=== PATIENT | female | born 1990 | race Caucasian/White ===

== ENCOUNTER 2024-07-05 10:41 | Outpatient (CLI) | payer BC, SELFPAY ==
--- NOTE | ~2024-07-05 | CT_ITS ---
EXAMINATION: CT abdomen pelvis w con DATE: 07/05/2024 11:23 INDICATION: Irritable bowel syndrome. TECHNIQUE: Computed tomography (CT) of the abdomen and pelvis was performed with 100 mL Omnipaque 350 intravenous contrast. Automated exposure control and iterative reconstruction technique were employe d. The dose-length product was 584.82 mGy-cm. COMPARISON: None. FINDINGS: The visualized portions of lung bases are clear without pneumonia or pleural effusion. The heart size is normal. No pericardial effusion. The liver, gallbladder, spleen, pancreas, adrenal glan ds, and left kidney are normal. There is a 7 mm cyst in right kidney. There are no dilated loops of b owel. The appendix is normal. There are no pathologically enlarged lymph nodes. There is no free intr aperitoneal fluid. There is mild lumbar spondylosis. IMPRESSION: 1. No etiology for the patient's symptoms. Reviewed, dictated and finalized at location A. Y ATTENDANT
== END 2024-07-05 10:42 | disposition home or self-care (01) ==
LOC: MICIMG 10:41
PROVIDERS: PCP Emergency Medicine; Visit Provider Emergency Medicine
DX: K58.2 Mixed irritable bowel syndrome (principal)
CPT/HCPCS: 74177; Q9967

== ENCOUNTER 2024-09-02 11:45 | Emergency (ER) | payer BC, SELFPAY ==
--- NOTE | ~2024-09-02 | XR_ITS ---
EXAMINATION: XR knee RT 3V DATE: 09/02/2024 12:07 INDICATION: Right knee pain. Injury. TECHNIQUE: 3 views of right knee including standing views were obtained. COMPARISON: None. FINDINGS: Alignment is normal. No fracture. Joint spaces are normal. No knee joint effusion. IMPRESSION: 1. Normal right knee. Reviewed, dictated and finalized at location A. IMPRESSION: 1. Normal right knee.
--- NOTE | 2024-09-02 11:48 | ED_ITS ---
HPI - Extremity Injury (Lower) General Chief Complaint: Extremity Injury, Lower Stated Complaint: Knee Pain/Ear Pain Source: patient and RN notes reviewed Mode of arrival: ambulatory Limitations: no limitations History of Present Illness HPI Narrative: Patient is a 34-year-old female who presents to the [facility] with multiple complaints. Patient reports right anterior knee pain that has been ongoing since August 10. Patient states that she played soccer and slid tackled another player. Immediately following, she developed right knee pain. She states that the pain is been ongoing. It worsens with ambulation. She states that it is also tender to touch. There is no obvious swelling, deformity, discoloration. She is neurovascularly intact distally. Denies numbness. Sensation is intact. Patient also reports right ear discomfort. States that this has been ongoing for the last few days. She feels as if the ear is clogged. Denies drainage from the ear. Related Data Home Medications ?Medication ?Instructions ?Recorded ?Confirmed ?Last Taken ?Type cholecalciferol (vitamin D3) 25 25 mcg PO DAILY 06/17/24 06/17/24 Unknown Hi story mcg (1,000 unit) capsule Allergies Allergy/AdvReac Type Severity Reaction Status Date / Time No Known Allergies Allergy Verified 09/02/24 11:54 Review of Systems Review of Systems: CONSTITUTIONAL: Denies fever, chills, or sweats. EYES: Denies visual changes, redness, or discharge. ENT: Reports otalgia but denies sore throat CARDIOVASCULAR: Denies chest pain, palpitations, or edema. RESPIRATORY: Denies cough or dyspnea. GASTROINTESTINAL: Denies abdominal pain, nausea, vomiting, or diarrhea. GENITOURINARY: Denies dysuria or hematuria. SKIN: Denies rash or itching. MUSCULOSKELETAL: Reports right knee pain. NEUROLOGIC: Denies headache, numbness, or weakness. Pertinent positives per HPI. [facility] Past Medical History Medical History GERD (gastroesophageal reflux disease) IBS (irritable bowel syndrome) Ganglion cyst left wrist removed Surgical History Surgical History S/P endoscopy H/O colonoscopy multiple Family History Family History Father Testicle cancer Hypertension Grandparent Acute myocardial infarction paternal grandfather Lung cancer maternal grandfather Cerebrovascular accident maternal grandfather Mother Ovarian cyst Hypertension Social History Social History Smoking status: Never smoker Second hand tobacco smoke exposure: No Alcohol intake: current Drinks per week: 2 Substance use: never Substance use type: does not use Do You Feel Safe in your Home?: Yes Lack of Transportation: No Lack of Food: Never True Current Housing: I Have Housing Concerned About Future Housing: No Difficulty Paying Gas/Electric Bills: No Difficulty Paying for Meds: No Currently Unemployed: No Education: Bachelor's Degree Difficulty w/ Childcare or Family Care: No Living arrangements: with family Additional living arrangements comments: Occupation/Education: occupation 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 There is no relevant family history pertinent to the patient complaint. Exam Narrative: GENERAL: This is a well-nourished, well-developed patient, in no apparent distress. HEAD: normocephalic, atraumatic. EYES: Sclera clear/white. Vision is grossly intact. EARS: External ears normal, auditory canals clear and without drainage, Left TM normal without perforation. R TM erythematous with effusion. Hearing grossly intact. NOSE: External nose normal with no obvious nasal discharge, nares without redness, no rhinorrhea. THROAT: Mucous membranes moist, posterior pharynx clear. NECK: Neck supple, non-tender without lymphadenopathy, masses or thyromegaly. CARDIOVASCULAR: Regular rate and rhythm without murmurs, gallops, or rubs. RESPIRATORY: Clear to auscultation. Breath sounds equal bilaterally. No wheezes, rales, or rhonchi. GASTROINTESTINAL: Abdomen soft, non-tender, nondistended. Bowel sounds are active. No hepato-splenomegaly, or palpable masses. No guarding. SKIN: warm, intact with no suspicious lesions or rash, good texture and turgor. NEURO: awake, alert, and oriented to person, place and time. There were no obvious focal neurologic abnormalities. EXTREMITIES: Patient is able to bear weight and ambulate. No surface of trauma or obvious effusion. No overlying erythema or warmth. The R knee is without obvious asymmetry or deformity when comparing to the L. Fully extended knee, internal and external rotation intact. Nontender to palpate of the patella, no effusion. Distal motor and neurovascular status intact. Course Course Level of Care: Express Care Visit Vital Signs Vital signs: Vital Signs Temperature 98.2 F 09/02/24 11:53 Pulse Rate 86 09/02/24 11:53 Respiratory Rate 18 09/02/24 11:53 Blood Pressure 125/80 09/02/24 11:53 Pulse Oximetry 100 09/02/24 11:53 Temperature 98.2 F 09/02/24 11:53 Pulse Rate 86 09/02/24 11:53 Respiratory Rate 18 09/02/24 11:53 Blood Pressure 125/80 09/02/24 11:53 Pulse Oximetry 100 09/02/24 11:53 Reviewed MDM - Extremity Injury (Lower) MDM Narrative Medical decision making narrative: Take antibiotics as directed. May given ibuprofen and/or Tylenol as needed for pain and/or fever. Follow up with primary care provider in 7-10 days to have ear rechecked. Use the RICE method at home. May take ibuprofen and/or Tylenol if needed. If symptoms persist in 1 week after conservative treatment, follow-up with specialist. Differential Diagnosis Differential diagnosis: Likely acute internal derangement of knee and other (knee contusion, patellar fracture, otitis media, otitis externa) Imaging Data Attestation: I personally reviewed and interpreted this imaging study as follows: Radiologist's impression: Close Knee X-Ray (Signed) Alex Ny - 09/02/24 Launch?[facility] [place] [id number] [facility] [place] [address] XRay Report Signed Patient: Christy Mcmahan : 1990 MR#: [id number] Age: 34 Acct:[id number] Loc: [facility] ADM Date: 09/02/24Attending Dr: Ordering Physician: Alyssa Ledesma APRN Date of Service: 09/02/24 Procedure(s): XR knee RT 3V Accession Number(s): [id number] cc: Alyssa Ledesma APRN; Boaz Kumar MD~ EXAMINATION: XR knee RT 3V DATE: 09/02/2024 12:07 INDICATION: Right knee pain. Injury. TECHNIQUE: 3 views of right knee including standing views were obtained. COMPARISON: None. FINDINGS: Alignment is normal. No fracture. Joint spaces are normal. No knee joint effusion. IMPRESSION: 1. Normal right knee. Reviewed, dictated and finalized at location A. Please be advised this is a medical document. It is intended for [id number] communication. It is written in medical language and may contain unfamiliar abbreviations or verbiage. Medical documents are intended to carry relevant information, facts as evident, and the clinical opinion of the practitioner at the time of the encounter. This report may have been done utilizing a voice recognition system. Attempts have been made to correct errors. However, there may be uncorrected grammatical, spelling, and recognition errors present. The file time of this note does not necessarily represent the time of service. Dictated By: Alex Ny MD 09/02/24 1208 Signed By: <Electronically signed by Alex Ny MD in OV> 09/02/24 1208 Critical Care Time Critical Care Time Critical Care Time: No Discharge Plan Discharge Clinical Impression: Right knee sprain, Acute otitis media with effusion of right ear Patient Disposition: Home, Self-Care Condition: Stable Instructions: Antibiotic Form, Knee Sprain (ED), Ear Infection (ED), P.R.I.C.E. Treatment (ED) Additional Instructions: Use the RICE method at home. May take ibuprofen and/or Tylenol if needed. If symptoms persist in 1 week after conservative treatment, follow-up with specialist. Take antibiotics as directed. May given ibuprofen and/or Tylenol as needed for pain and/or fever. Follow up with primary care provider in 7-10 days to have ear rechecked. Patient Language: Wolof Prescriptions: New amoxicillin-pot clavulanate 875-125 mg tablet 1 tablet PO Q12H 10 Days Qty: 20 0RF naproxen 500 mg tablet 500 mg PO BID PRN (Reason: pain) Qty: 20 0RF No Action cholecalciferol (vitamin D3) 25 mcg (1,000 unit) capsule 25 mcg PO DAILY Follow-up/Referrals: Nicanor Martinez MD [Physician] - Boaz Kumar MD [Primary Care Provider] - Time of Disposition: 12:18
[2024-09-02 11:53] VITALS: BP 125/80; PULSE 86; RESP 18; TEMP 36.8; O2SAT 100
== END 2024-09-02 12:33 | disposition home or self-care (01) ==
PROVIDERS: Emergency Provider Nurse Practitioner; PCP Emergency Medicine
DX: S83.91XA Sprain of unspecified site of right knee, initial encounter (principal); X58.XXXA Exposure to other specified factors, initial encounter; Y93.66 Activity, soccer; H65.191 Other acute nonsuppurative otitis media, right ear; K21.9 Gastro-esophageal reflux disease without esophagitis
CPT/HCPCS: 73562; 99213; G0463

== ENCOUNTER 2024-10-01 10:32 | Emergency (ER) | payer BC, SELFPAY ==
[2024-10-01 10:38] VITALS: BP 130/85; PULSE 79; RESP 20; TEMP 36.8; O2SAT 100
--- NOTE | 2024-10-01 11:12 | ED.LOWEXIN ---
HPI - Extremity Injury (Lower) General Chief Complaint: Extremity Injury, Lower Stated Complaint: Right Foot Injury Time Seen by Provider: 10/01/24 11:13 Source: patient Mode of arrival: ambulatory Limitations: no limitations History of Present Illness HPI Narrative: 34 y/o female presented for c/o bruising and pain to the right foot and ankle. Onset 2 days. Symptoms started the day after running a half marathon. Denies deformity, swelling, numbness tingling or weakness. Pain only when bearing weight. Related Data Home Medications ?Medication ?Instructions ?Recorded ?Confirmed ?Last Taken ?Type No Home Medications 10/01/24 Unknown History Allergies Allergy/AdvReac Type Severity Reaction Status Date / Time No Known Allergies Allergy Verified 10/01/24 10:42 Review of Systems Review of Systems: CONSTITUTIONAL: Denies body aches, fever, chills EYES: Denies visual changes ENT: Denies rhinorrhea, congestion CARDIOVASCULAR: Denies chest pain, palpitations, or edema. RESPIRATORY: Denies cough or dyspnea. SKIN: Denies rash, itching, or wounds. MUSCULOSKELETAL: reports right foot pain denies back pain, joint pain, or myalgia. NEUROLOGIC: Denies numbness, tingling, or weakness. All systems reviewed & are unremarkable except as noted in HPI and below PMFSH Past Medical History Medical History GERD (gastroesophageal reflux disease) IBS (irritable bowel syndrome) Ganglion cyst left wrist removed Surgical History Surgical History S/P endoscopy H/O colonoscopy multiple Family History Family History Father Testicle cancer Hypertension Grandparent Acute myocardial infarction paternal grandfather Lung cancer maternal grandfather Cerebrovascular accident maternal grandfather Mother Ovarian cyst Hypertension Social History Social History Smoking status: Never smoker Second hand tobacco smoke exposure: No Alcohol intake: current Drinks per week: 2 Substance use: never Substance use type: does not use Do You Feel Safe in your Home?: Yes Lack of Transportation: No Lack of Food: Never True Current Housing: I Have Housing Concerned About Future Housing: No Difficulty Paying Gas/Electric Bills: No Difficulty Paying for Meds: No Currently Unemployed: No Education: Bachelor's Degree Difficulty w/ Childcare or Family Care: No Living arrangements: with family Additional living arrangements comments: Occupation/Education: occupation 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 Please see nursing chart for further information. There is no relevant family history pertinent to the presenting complaint Exam Narrative: GENERAL: Well-appearing CHEST: Speaks in full sentences. No respiratory distress. HEART: Regular rate and rhythm. Normal and equal peripheral pulses. EXTREMITIES: Right foot and ankle has normal strength and sensation, normal range of motion with flexion/extension/rotation. No point tenderness. Mild bruising to the base of the 4th and 5th metatarsals. No swelling, nontender with palpation. No open wounds, skin tenting, or obvious deformity; alignment normal, pulse palpable and equal bilaterally, skin warm, dry, pink. Capillary refill less than 3 seconds. SKIN: Warm, dry, no rash. NEURO: Alert and oriented x3. PSYCH: Normal mood and affect Course Course Emergency Course: Patient is aware of diagnosis, understands and agrees to treatment plan. Anticipatory guidance given. Patient agrees to follow-up as directed and is aware of reasons to seek care at the emergency department. Portions of this record may have been created with voice recognition software Level of Care: Express Care Visit Vital Signs Vital signs: Vital Signs Temperature 98.3 F 10/01/24 10:38 Pulse Rate 79 10/01/24 10:38 Respiratory Rate 20 10/01/24 10:38 Blood Pressure 130/85 10/01/24 10:38 Pulse Oximetry 100 10/01/24 10:38 Oxygen Delivery Room Air 10/01/24 10:38 Temperature 98.3 F 10/01/24 10:38 Pulse Rate 79 10/01/24 10:38 Respiratory Rate 20 10/01/24 10:38 Blood Pressure 130/85 10/01/24 10:38 Pulse Oximetry 100 10/01/24 10:38 Oxygen Delivery Room Air 10/01/24 10:38 Reviewed MDM - Extremity Injury (Lower) MDM Narrative Medical decision making narrative: Discussed physical exam findings and x-ray. Patient declined Nitesh wrap.. Advised supportive measures and signs/symptoms to go to the ER. Pt is appropriate for outpt treatment and f/u. Differential Diagnosis Differential diagnosis: Likely ankle sprain and strain and other (Plantar fasciitis, heel spur, foot strain/sprain, metatarsal fracture, metatarsalgia, walker's neuroma) Imaging Data Radiologist's impression: Patient: Christy Mcmahan : 1990 MR#: [id number] Age: 34 Acct:[id number] Loc: [facility] ADM Date: 10/01/24Attending Dr: Ordering Physician: Yessica Pablo APRN Date of Service: 10/01/24 Procedure(s): XR foot RT min 3V Accession Number(s): [id number] cc: Boaz Kumar MD; Yessica Pablo APRN~ Right foot Technique: AP, oblique, and lateral views were obtained. Clinical History: Pain Findings: No acute fracture or dislocation is seen. Osseous alignment is anatomic. Joint spaces are preserved without erosive or degenerative change. Soft tissues are unremarkable. Impression: Unremarkable right foot radiographs. Discharge Plan Discharge Clinical Impression: Right foot strain Patient Disposition: Home Condition: Stable Instructions: Antibiotic Form, Foot Sprain (ED) Additional Instructions: Rest and elevate the right leg; bear weight as tolerated Apply ice 15-20 minute intervals several times a day Keep it wrapped with NITESH or use a soft ankle splint Motrin 600mg every 8 hours, alternate with Tylenol 1000mg every 8 hours as needed Follow up with your primary care provider as needed Go to the ER for worsening symptoms or concerns Patient Language: Salvadorean Prescriptions: No Action No Home Medications Follow-up/Referrals: Boaz Kumar MD [Primary Care Provider] - Time of Disposition: 11:29
--- OUTSIDE RECORDS SUMMARY | 2024-10-01 11:44 | XMS_ITS | Clinical Summary ---
Author Organization [facility] Address Formerly [facility], [id number] [place] [address] Care Team Providers Care Machine Stamper Name Role Phone Angelita Tierney MD Primary Care Provider [phone] Social History Tobacco Use Types Packs/Day Years Used Date Smoking Tobacco: Never Assessed Comments Unknown Sex and Gender Information Value Date Recorded Sex Assigned at Not on file Legal Sex Female 5:10 PM CDT Gender Identity Not on file Sexual Orientation Not on file Plan of Treatment Health Maintenance Due Date Last Done Comments Cervical Cancer Screening Pa p Smear (Age 30 to 64) Every 3 Years 1989 Annual Physical 01/27/1992 Hepatitis C 2007 Hepatitis B Vaccines (1 of 3 - 19+ 3-dose series) 01/27/2008 Cervical Cancer Screening Pa p with HPV Testing (Age 30 to 64) Every 5 Years 2019 Cervical Cancer Screening with HPV 2019 DTaP, Tdap and Td Vaccines ( 2 - Td or Tdap) 01/11/2023 01/11/2013 COVID-19 Vaccine (2023-2 5 season) 2024 HPV Vaccines Aged Out No longer eligi ble based on patient's age to complete this topic Meningococcal B Vaccine Aged Out No l onger eligible based on patient's age to complete this topic Meningococcal Vaccine Aged Out No larry jose eligible based on patient's age to complete this topic Pneumococcal Vaccine: Pediat rics (0 to 5 Years) and At-Risk Patients (6 to 49 Years) Aged Out No longer eligi ble based on patient's age to complete this topic RSV Immunizations Under 20 Months Aged Out No longer eligible based on patient's age to complete this topic Insurance [address] [place] [address] [place] [id number] [facility] Care Teams Machine Stamper Relationship Specialty Start Date End Date Angelita Tierney MD PCP - General FAMILY PRACTICE 02/27/19
--- OUTSIDE RECORDS SUMMARY | 2024-10-01 11:45 | XMS_ITS | Patient Health Record ---
Author Organization [facility] Billing Info Address [address] [place] [id number] Care Team Providers Care Wire Machine Operator Name Role Phone MELISSA TYLER Unavailable Reason For Referral No Information Medications Medication SIG (Take, Route, Frequency, Duration) Notes Start Date End Date Status Vitafol Ultra 29-0.6-0.4-200 MG 1 capsule Orally Once a day Active Immunizations Vaccine Route Administration Date Status Comme nts TDAP (ADACEL) IM Intramuscular 08/18/2017 Administered Social History Tobacco Use: Social History Observation Description Date Details (start date - stop date) Never Smoker NA - NA Tobacco Status: Question Answer Notes Patient is a never smoker Problems No Known Problems Plan Of Treatment No Information Insurance Providers Payer Name Payer Address Payer Phone Subscriber Number Group Number Insured Name Patient Relationship to Insured Coverage Start Date Coverage End Date [facility] [address] [place], [place] [id number] Bogdan Mcmahan Spouse - patient is the spouse of the insured 8 Medical (General) History Surgical History Surgery Date(Month/Year) Hospitalization History Reason Date(Month/Year) childbirth 09/2014 childbirth 09/26/2017
--- OUTSIDE RECORDS SUMMARY | 2024-10-01 11:45 | XMS_ITS | Clinical Summary ---
Author Organization [facility] Care Team Providers Care Administrative Technician Name Role Phone Boaz Kumar MD Primary Care Provider + [phone] Allergies No known active allergies Medications triamcinolone (KENALOG) 0.1 % cream Apply topically 2 (two) times a day Active betamethasone valerate (VALISONE) 0.1 % lotion Apply topically 2 (two) times a day Active Bacillus coagulans (PROBIOTIC, B. COAGULANS, ORAL) Take by mouth Active pantoprazole DR (PROTONIX) 40 mg EC tablet Take 1 tablet (40 mg total) by mouth daily before breakfast 30 tablet 6 4 Active Active Problems Problem Noted Date Diagnosed Date Gastric ulcer without hemorrhage or perforation 10/18/2023 Chronic diarrhea 10/10/2023 Diarrhea 07/21/2023 Assessment & Plan (07/21/2023 10:01 AM METAL RIVET MACHINE OPERATOR): Chronic diarrhea. Last colonoscopy by Dr. Feng March 2022 with normal colonoscopy to the terminal ileum, biopsies of the ascending colon with melanosis coli. Last EGD by Dr. Feng March 2022 with biopsies of the duodenum with increased intraepithelial lymphocytes. -we will order stool studies and labs for further evaluation Abdominal pain 07/21/2023 Assessment & Plan (07/21/2023 10:02 AM METAL RIVET MACHINE OPERATOR): Left lower quadrant abdominal pain radiating to the left upper quadrant and back, worse with movement and meals. Tender to palpation in the left lower quadrant, we will need to rule out diverticulitis. -we will order CT scan of the abdomen and pelvis with and without contrast Dizziness and giddiness 05/31/2023 Tinnitus of left ear 05/31/2023 Pelvic and perineal pain 05/17/2023 Vitamin D deficiency 03/15/2023 Eosinophilic esophagitis 03/14/2023 Overview (03/24/2023): Dr. Mcgrath. Previously on budesonide nebulizer for suppression. Assessment & Plan (07/21/2023 10:00 AM METAL RIVET MACHINE OPERATOR): Last EGD by Dr. Feng March 2022 with erosions of the distal esophagus, gastritis. Pathology from EGD biopsies with mildly increased intraepithelial lymphocytes in the duodenum, benign fundic gland polyp, increased intraepithelial eosinophils on esophageal biopsies. -unclear if this is true EOE versus GERD -continue PPI daily -schedule EGD with biopsies -The risks (risks of bleeding, infection, perforation requiring surgery, missed polyps/cancer, dental injury, aspiration pneumonia, anesthesia complications such as drug reaction and cardiopulmonary complications including rare chance of ), benefits, and alternatives of the planned procedure were explained to the patient who understands and consents to having procedure done. Assessment & Plan (03/14/2023 4:34 PM CDT): Chronic. Stable. Continue pantoprazole 40 mg daily. We will review records from GI and discuss tapering this therapy or alternate therapies. Other chronic pancreatitis 03/14/2023 Overview (03/24/2023): Per GI notes 03/23/23 - Dr. Britt. Course of Creon in the past. HIDA scan? Assessment & Plan (07/21/2023 10:00 AM METAL RIVET MACHINE OPERATOR): Unclear diagnosis, has tried Creon in the past but cause constipation. -obtain prior GI records Assessment & Plan (03/14/2023 4:34 PM CDT): Chronic. Uncertain etiology. Need to review records from GI. No longer taking Creon as this cause constipation. Gastroesophageal reflux dise ase with esophagitis without hemorrhage 03/14/2023 Assessment & Plan (07/21/2023 10:00 AM METAL RIVET MACHINE OPERATOR): Chronic GERD, well-controlled with PPI daily. Takes Tums p.r.n.. -Continue PPI daily -RECOMMENDATIONS given include: anti-reflux maneuvers, Avoid acidic foods like oranges and tomatoes., avoidance of spicy foods, avoid eating 3-4 hours before bed, elevation of the head of the bed, and weight loss Assessment & Plan (03/14/2023 4:34 PM CDT): Chronic. Stable. Currently on pantoprazole 40 mg daily. Need to review records from GI to consider tapering off. Bilateral wrist pain 10/14/2021 Ganglion cyst of dorsum of left wrist 10/14/2021 Syncope 10/14/2021 Breast pain, left 12/22/2020 Anemia during in third trimester 12/30 Encounters Date Type Department Care Team Description 07/05/2024 12:45 PM METAL RIVET MACHINE OPERATOR Office Visit [facility] at [address] [id number] Mahogany Easley, BEN Exposure to the flu (Primary Dx); Acute viral syndrome from Last 3 Months Immunizations Immunization Administration Dates Next Due Influenza, Quadrivalent, Spl it, Preservative Free, Intramuscular 04/22/2021,03/04/2019 Influenza, Unspecified 03/05/2023(Deferr ed: Patient decision),03/05/2022(Deferred: Patient decision) Tdap 12/27/2019 Surgical History Surgery Date Site/Laterality Comments COLONOSCOPY ESOPHAGOGASTRODUODENOSCOPY VAGINAL DELIVERY x3 Medical History Medical History Date Comments GERD (gastroesophageal reflux disease) 06/2007 Eosinophilic esophagitis Pancreatitis Chronic Anemia Low vitamin D level Dizziness Tinnitus Diarrhea Kidney stone Ovarian cyst Motion sickness Gastric ulcer Hiatal hernia Family History Medical History Relation Name Comments No Known Problems Brother 1 No Known Problems Brother 2 Testicular cancer Father Lung cancer Maternal Grandfather Clotting disorder Mother Aleena Ovarian cysts Mother Aleena Heart attack Paternal Grandfather No Known Problems Paternal Grandmother No Known Problems Sister 1 No Known Problems Sister 2 No Known Problems Sister 3 No Known Problems Sister 4 Breast cancer Neg Hx Ovarian cancer Neg Hx Relation Name Status Comments Brother 1 Alive Brother 2 Alive Father Alive Maternal Grandfather Maternal Grandmother Alive Mother Aleena Alive Paternal Grandfather Paternal Grandmother Sister 1 Alive Sister 2 Alive Sister 3 Alive Sister 4 Alive Social History Tobacco Use Types Packs/Day Years Used Date Smoking Tobacco: Never Smokeless Tobacco: Never Tobacco Cessation:Counseling Given: Not Answered AUDIT-C Answer Date Recorded Q1: How often do you have a drink containing alcohol? 2-3 times a week 12/18/2023 Q2: How many drinks containi ng alcohol do you have on a typical day when you are drinking? Patient does not drink Q3: How often do you have si x or more drinks on one occasion? Never 12/18/2023 PHQ-2 Answer Date Recorded PHQ-2 Total Score (If total score is 3 or more points, staff should administer the PHQ-9) 0 05/15/2023 Personal Safety Answer Date Recorded Have you ever been in or are you currently in a harmful physical or emotional relationship or is someone making you feel afraid or unsafe? Denies 12/18/2023 Comments No Sex and Gender Information Value Date Recorded Sex Assigned at Not on file Legal Sex Female 1:11 PM CDT Gender Identity Not on file Sexual Orientation Not on file Obstetrics History Para Term AB IAB SAB Ectopic Multiple Livin g Live Births 3 3 3 3 3 Date Outcome GA Total Labor Labor/2nd/3rd Weight Sex Type Anes PTL Minoo A1 A5 Name Clin Term Term Term Last Filed Vital Signs Vital Sign Reading Time Taken Comments Blood Pressure 118/76 07/05/2024 12:33 PM METAL RIVET MACHINE OPERATOR Pulse 86 07/05/2024 12:33 PM METAL RIVET MACHINE OPERATOR Temperature 36.9 C (98.4 F) 07/05/2024 12:33 PM METAL RIVET MACHINE OPERATOR Respiratory Rate 20 07/05/2024 12:33 PM METAL RIVET MACHINE OPERATOR Oxygen Saturation 98% 07/05/2024 12:33 PM METAL RIVET MACHINE OPERATOR Inhaled Oxygen Concentration - - Weight 74.4 kg (164 lb) 07/05/2024 12:33 PM METAL RIVET MACHINE OPERATOR Height 170.2 cm (5' 7 ) 07/21/2023 9:30 AM METAL RIVET MACHINE OPERATOR Body Mass Index 25.69 07/21/2023 9:30 AM METAL RIVET MACHINE OPERATOR Plan of Treatment Health Maintenance Due Date Last Done Comments Hepatitis C Screening 1990 Hepatitis B Screening 2007 Regular Well Visit/Exam 18-64 2007 Covid-19 Vaccine ( season) 2024 05/12/2021, 07/29/2020, 06/29/2020 Depression Screening 05/15/2024 05/15/2023, 03/14/2023, 03/14/2023 Influenza Vaccine (Season Ended) 2025 04/22/2021, 03/04/2019 Cervical Cancer Screening 05/17/20282022, 02/01/2019 DTaP/Tdap/Td Vaccine (2 - Td or Tdap) 12/26/2029 12/27/2019 Colon Cancer Screening-Colonoscopy 10/15/2033 10/16/2023, 03/15/2022 HPV Vaccines Aged Out No longer eligi ble based on patient's age to complete this topic Pneumococcal vaccine <65 Aged Out No longer eligible based on patient's age to complete this topic Varicella Vaccines Discontinued Procedures Procedure Name Priority Date/Time Associated Diagnosis Comments POC INFLUENZA A/B, COVID-19 ANTIGEN Routine 07/05/2024 12:41 PM METAL RIVET MACHINE OPERATOR Exposure to the flu COLONOSCOPY 10/16/2023 9:43 AM CDT PAP AND HIGH RISK HPV, REFLEX TO GENOTYPING Routine 05/17/2023 4:41 PM METAL RIVET MACHINE OPERATOR Encounter for screening for malignant neoplasm of cervix from Last 3 Months or Most Recently Relevant to Health Maintenance Results * POC Influenza A/B, COVID-19 antigen (07/05/2024 12:41 PM METAL RIVET MACHINE OPERATOR) Influenza A Ag, POC Negative Negative [facility] Influenza B Ag, POC Negative Negative [facility] COVID-19 Ag POC Presumptive Negative Presumptive Negative, Invalid [facility] Nasal 07/05/2024 12:4 1 PM METAL RIVET MACHINE OPERATOR us Mahogany Easley NP POINT OF CARE TEST ORDERAB LES Final Result [facility] [address] [place] [address] * Colonoscopy (10/16/2023 9:43 AM CDT) Anatomical Region Laterality Modality Other Narrative Procedure Note Gil Hutchison MD - 10/16/2023 9:43 AM CDT [facility] GI ENDOSCOPY Patient Name: Christy Ward Procedure Date: 10/16/2023 9:43 AM Date of : 1990 Admit Type: Outpatient Age: 33 Gender: Female Attending MD: Gil Hutchison M.D. Room: [facility] ENDOSCOPY ROOM 06 Note Status: Finalized Procedure: Colonoscopy Indications: Chronic diarrhea Referring MD: Providers: Gil Hutchison M.D. Medicines: Monitored Anesthesia Care Complications: No immediate complications. Estimated Blood Loss: Estimated blood loss: none. Procedure: Pre-Anesthesia Assessment: - Prior to the procedure, a History and Physicalwas performed, and patient medications and allergieswere reviewed. The risks and benefits of the procedureand the sedation options and risks were discussed withthe patient. All questions were answered and informed consent was obtained. Patient identification and proposed procedure were verified. After reviewingthe risks and benefits, the patient was deemed in satisfactory condition to undergo the procedure.The anesthesia plan was to use monitored anesthesiacare (MAC). Immediately prior to administration of medications, the patient was re-assessed foradequacy to receive sedatives. The heart rate, respiratory rate, oxygen saturations, blood pressure, adequacyof pulmonary ventilation, and response to care were monitored throughout the procedure. The physical status of the patient was re-assessed after the procedure. The benefits, risks and alternatives of theprocedure and sedation were discussed and informed consentwas obtained. All questions were answered. Please referto the signed informed consent document in the medical record. The scope was passed under direct vision.The [id number]-[id number] colonoscope was introduced through theanus and advanced to the terminal ileum. The colonoscopy was performed without difficulty. The patient tolerated the procedure well. The quality of thebowel preparation was good. Scope withdrawal time was 8 minutes. Prep was administered in a split dose. Findings: The perianal and digital rectal examinations were normal. The terminal ileum appeared normal. A diffuse area of mildly melanotic mucosa was found in the entirecolon. Non-bleeding internal hemorrhoids were found during retroflexion. The hemorrhoids were small. The left colon was moderately tortuous. The exam was otherwise without abnormality. Biopsies for histology were taken with a cold forceps from the right colon and left colon for evaluation of microscopic colitis. Impression: - The examined portion of the ileum was normal. - Melanotic mucosa in the entire examined colon. - Non-bleeding internal hemorrhoids. - Tortuous colon. - The examination was otherwise normal. - Biopsies were taken with a cold forceps from the right colon and left colon for evaluation of microscopic colitis. Recommendation: - Patient has a contact number available for emergencies. The signs and symptoms of potential delayed complications were discussed with thepatient. Return to normal activities tomorrow. Written discharge instructions were provided to thepatient. - High fiber diet. - Continue present medications. - Await pathology results. - Repeat colonoscopy at age 44 for screeningpurposes. - Return to GI clinic as previously scheduled. Gil Hutchison M.D. Gil Hutchison M.D. 10/16/2023 10:16:14 AM . Number of Addenda: 0 Note Initiated On: 10/16/2023 9:43 AM Recognized by the [employer] for promoting quality in endoscopy us Gil Hutchison MD ENDOSCOPY PROCEDURES Final Resul t * Pap and High Risk HPV and Genotyping (Cytology Component) (05/17/2023 4:41 PM METAL RIVET MACHINE OPERATOR) Vaginal (Pap test) 05/17/2023 4:41 PM METAL RIVET MACHINE OPERATOR 05/18/2023 5:41 PM METAL RIVET MACHINE OPERATOR Narrative PATHOLOGY [facility] - 05/26/2023 7:40 AM METAL RIVET MACHINE OPERATOR EPIC results best viewed via link to PDF [facility] [place] [address] Note to Patients: This report may contain a detailed description of human tissue sent by a health care provider to the laboratory for pathologic evaluation. The content of this report is essential for diagnosis and may provide important critical findings. This information may be unfamiliar to patients to review without a medical professional present. It is advised that the patient review this report in the presence of a health care provider who can answer questions and explain the details. CYTOPATHOLOGY REPORT FINAL Patient Name: CHRISTY WARD Gender: Mala : 1990 (Age: 33) Address: [address] [place] [id number] Hospital #: [id number] Service: DEFAULT Location: Patient Type: [facility] SPECIMEN Taken: 05/17/2023 Received: 05/18/2023 Accessioned: 05/22/2023 Reported: 05/26/2023 Physician(s): Vaibhav Corley M.D. FINAL INTERPRETATION SOURCE OF SPECIMEN Liquid based Thin Prep pap with HPV: STATEMENT OF ADEQUACY - Satisfactory for evaluation - Endocervical cells/transformation zone sample present GENERAL CATEGORIZATION: - Negative for squamous intraepithelial lesion or malignancy Comments (Normal-Negative for High Risk HPV) HPV HR 16- Not detected HPV HR 18-Not detected HPV HR non 16/18- Not detected Interpretive Data Nucleic acid amplification for detection of high-risk Human Papilloma virus (HPV) is performed by the Juan Carlos Kiera 6800 HPV test. This assay specifically detects HPV- 16 and HPV-18 genotypes. The following HPV genotypes are detected as high-risk HPV: HPV-31, 33, 35, 39, 45, 51, 52, 56, 58, 59, 66, and 68. This assay has been approved by the [place] Food and Drug Administration for detection of HPV in cervical specimens collected by a physician using an endocervical brush/spatula or cervical broom and placed in the ThinPrep Pap Test PreservCyt collection containers. The performance characteristics of this test have been verified by the [facility] Molecular Infectious Disease laboratory. Correlate with reported cytology results, as applicable. Interpretive data last revised [facility] [place]/05/26/2023 07:40 PEBBLES Oconnor (ASCP) Report Electronically Reviewed and Signed Out By PEBBLES Oconnor (ASCP) 05/26/2023 07:40:14 Cervicovaginal Cytology (Pap Test) Disclaimer: The Pap test is a screening test used to detect cervical cancer and its precursors; it is not a diagnostic procedure. False negative and false positive results do occur. Pap test results should be interpreted in the context of pertinent clinical information and biopsy results as indicated. [facility] Clinical Laboratory Improvement Amendments (CLIA) mandate that cytologic and histologic results be correlated for laboratory quality and reliability engineer & improvement standards. FOR ALL HIGH-GRADE CASES we request submission of follow-up histological material and/or reports that have not been previously provided so that we may fulfill said required standards. Gross Description A. Liquid based Thin Prep pap with HPV: Cervical/vaginal - Screening ThinPrep Clinical Diagnosis and History Last Menstrual Period: 04/23/2023 The patient is a 33 year old woman with routine. Report Images and scanned documents, if included only viewable in PDF version The performance characteristics of some immunohistochemical stains, in-situ hybridization and fluorescence in-situ hybridization tests and immunophenotyping by flow cytometry cited in this report (if any) were determined by the Surgical Pathology Department at [facility] as part of an ongoing water quality assistant program and in compliance with federally mandated regulations drawn from the Clinical Laboratory Improvement Act of 1988 (CLIA '88). Some of these tests rely on the use of analyte specific reagents and are subject to specific labeling requirements by the [place] Food and Drug Administration. Such diagnostic tests may only be performed in a facility that is certified by the Department of Health and Human Services as a high complexity laboratory under CLIA '88. The FDA has determined that such clearance or approval is not necessary. This test is used for clinical purposes. It should not be regarded as investigational or for research. Nevertheless, federal rules concerning the medical use of analyte specific reagents require that the following disclaimer be attached to the report: This test was developed and its performance characteristics determined by the Surgical Pathology Department of [facility]. It has not been cleared or approved by the [place]. S. Food and Drug Administration. Vaibhav Corley MD LAB CYTOLOGY ORDERABLES Final Result [facility] from Last 3 Months or Most Recently Relevant to Health Maintenance Insurance [facility] Care Teams Administrative Technician Relationship Specialty Start Date End Date Boaz Kumar MD [address] [place] [address] PCP - General Family Medicine 07/05/24
--- OUTSIDE RECORDS SUMMARY | 2024-10-01 11:45 | XMS_ITS | Referral Summary ---
Author Organization [facility] HealthCare Care Team Providers Care Mud Worker Name Role Phone Boaz Kumar MD Primary Care Provider Encounters Date Type Department Care Team Description 07/05/2024 12:45 PM HEARING OFFICER Office Visit [facility] Care at [address] [address] Mahogany Easley NP Exposure to the flu (Primary Dx); Acute viral syndrome from Last 3 Months Allergies No known active allergies Medications triamcinolone [...] mouth daily before breakfast 30 tablet 6 Active Active Problems Problem Noted Date Diagnosed Date Gastric ulcer without hemorrhage or perforation 10/18/2023 Chronic diarrhea 10/10/2023 Diarrhea 07/21/2023 Assessment & Plan (07/21/2023 10:01 AM HEARING OFFICER): Chronic diarrhea. Last colonoscopy by Dr. Feng March 2022 with normal colonoscopy to the terminal ileum, biopsies of the ascending colon with melanosis coli. Last EGD by Dr. Feng March 2022 with biopsies of the duodenum with increased intraepithelial lymphocytes. -we will order stool studies and labs for further evaluation Abdominal pain 07/21/2023 Assessment & Plan (07/21/2023 10:02 AM HEARING OFFICER): Left lower quadrant abdominal pain radiating to [...] suppression. Assessment & Plan (07/21/2023 10:00 AM HEARING OFFICER): Last EGD by Dr. Feng March 2022 [...] scan? Assessment & Plan (07/21/2023 10:00 AM HEARING OFFICER): Unclear diagnosis, has tried Creon in the past but cause constipation. -obtain prior GI records Assessment & Plan (03/14/2023 4:34 PM CDT): Chronic. Uncertain etiology. Need to review records from GI. No longer taking Creon as this cause constipation. Gastroesophageal reflux dise ase with esophagitis without hemorrhage 03/14/2023 Assessment & Plan (07/21/2023 10:00 AM HEARING OFFICER): Chronic GERD, well-controlled with PPI daily. Takes [...] 12/22/2020 Anemia during in third trimester 12/30 Immunizations Immunization Administration Dates Next Due Influenza, Quadrivalent, Spl it, Preservative Free, Intramuscular 04/22/2021,03/04/2019 Influenza, Unspecified 03/05/2023(Deferr ed: Patient decision),03/05/2022(Deferred: Patient decision) Tdap 12/27/2019 Social History Tobacco Use Types Packs/Day Years [...] on file Sexual Orientation Not on file Last Filed Vital Signs Vital Sign Reading Time Taken Comments Blood Pressure 118/76 07/05/2024 12:33 PM HEARING OFFICER Pulse 86 07/05/2024 12:33 PM HEARING OFFICER Temperature 36.9 C (98.4 F) 07/05/2024 12:33 PM HEARING OFFICER Respiratory Rate 20 07/05/2024 12:33 PM HEARING OFFICER Oxygen Saturation 98% 07/05/2024 12:33 PM HEARING OFFICER Inhaled Oxygen Concentration - - Weight 74.4 kg (164 lb) 07/05/2024 12:33 PM HEARING OFFICER Height 170.2 cm (5' 7 ) 07/21/2023 9:30 AM HEARING OFFICER Body Mass Index 25.69 07/21/2023 9:30 AM HEARING OFFICER Plan of Treatment Not on file Procedures Procedure Name Priority Date/Time Associated Diagnosis Comments POC INFLUENZA A/B, COVID-19 ANTIGEN Routine 07/05/2024 12:41 PM HEARING OFFICER Exposure to the flu COLONOSCOPY 10/16/2023 9:43 AM CDT PAP AND HIGH RISK HPV, REFLEX TO GENOTYPING Routine 05/17/2023 4:41 PM HEARING OFFICER Encounter for screening for malignant neoplasm of cervix from Last 3 Months or Most Recently Relevant to Health Maintenance Results * POC Influenza A/B, COVID-19 antigen (07/05/2024 12:41 PM HEARING OFFICER) Influenza A Ag, POC Negative Negative [facility] Influenza B Ag, POC Negative Negative [facility] COVID-19 Ag POC Presumptive Negative Presumptive Negative, Invalid [facility] Nasal 07/05/2024 12:4 1 PM HEARING OFFICER us Mahogany Easley NP POINT OF CARE TEST ORDERAB LES Final Result [facility] [address] * Colonoscopy (10/16/2023 9:43 AM CDT) Anatomical Region Laterality Modality Other Narrative Procedure Note Gil Hutchison MD - 10/16/2023 9:43 AM CDT [facility] GI ENDOSCOPY Patient Name: Christy aWrd Procedure Date: 10/16/2023 9:43 AM Date of : 1990 Admit Type: Outpatient Age: 33 Gender: Female Attending MD: Gil Hutchison M.D. Room: [facility] ENDOSCOPY ROOM 06 Note Status: Finalized Procedure: [...] The scope was passed under direct vision.The [id number]-[id number] colonoscope was introduced through theanus and advanced [...] On: 10/16/2023 9:43 AM Recognized by the [employer] for promoting quality in endoscopy Gil Hutchison MD ENDOSCOPY PROCEDURES Final Resul t * Pap and High Risk HPV and Genotyping (Cytology Component) (05/17/2023 4:41 PM HEARING OFFICER) Vaginal (Pap test) 05/17/2023 4:41 PM HEARING OFFICER 05/18/2023 5:41 PM HEARING OFFICER Narrative PATHOLOGY [facility] - 05/26/2023 7:40 AM HEARING OFFICER EPIC results best viewed via link to PDF [facility] [place] [address] Note to Patients: This report may contain [...] REPORT FINAL Patient Name: CHRISTY WARD Gender: F : 1990 (Age: 33) Address: [address] [place] [address] Hospital #: [id number] Service: DEFAULT Location: Patient Type: [facility] SPECIMEN Taken: 05/17/2023 Received: 05/18/2023 Accessioned: 05/22/2023 [...] this test have been verified by the [facility] Molecular Infectious Disease laboratory. Correlate with reported cytology results, as applicable. Interpretive data last revised 22 [facility]/05/26/2023 07:40 PEBBLES Oconnor (ASCP) Report Electronically Reviewed [...] clinical information and biopsy results as indicated. [facility] Clinical Laboratory Improvement Amendments (CLIA) mandate that cytologic and histologic results be correlated for laboratory quality control expert & improvement standards. FOR ALL HIGH-GRADE CASES [...] determined by the Surgical Pathology Department at [facility] as part of an ongoing quality assurance associate program and in compliance with federally mandated [...] determined by the Surgical Pathology Department of [facility]. It has not been cleared or approved by the U. S. Food and Drug Administration. Vaibhav Corley MD LAB CYTOLOGY ORDERABLES Final Result PATHOLOGY [facility] from Last 3 Months or Most Recently Relevant to Health Maintenance Insurance [facility] [employer] Care Teams Mud Worker Relationship Specialty Start Date End Date Boaz Kumar MD [address] [place], [place] [address] [address] PCP - General Family Medicine 07/05/24
--- OUTSIDE RECORDS SUMMARY | 2024-10-01 11:46 | XMS_ITS | Continuity of Care Document ---
Author Organization [facility] Address [address] [place] [address] Phone Care Team Providers Care Senior Game Developer Name Role Phone Butch Echols MD Unavailable Unavailable Procedures Procedure Date Office consultation, moderate 5 X-ray exam of foot, complete Advance Directives Directive Yes / No Effective Date File Name No Information Encounters Encounter Description Practice Location Reason(s) For Visit Diagnoses Date Provider Providers Copied on Encounter Office consultation, moderate [facility], [address], [place], [id number], tel:[phone] [facility] No Information 5 Onesimo Rae. [address], [place], [id number] , . tel:[phone] Family History Family Member Type Diagnosis Age At Onset No Information Payers Payer name Insurance type Covered alliance party ID Authoriza tion(s) No Information Social History Type Description Quantity Date Captured Comments Sex Female Smoking Status No Information Chief Complaint And Reason For Visit No Information Reason For Referral Reason For Referral No Information History Of Present Illness Encounter Date Complaint History Of Prese nt Illness No Information Functional Status Date Functional Assessmen t No Information Instructions Date Instruction Additional Infor mation No Information Assessments Type Assessment Date No Information Patient Care Teams Name Effective Dates (start - stop) Status Members No Information
--- OUTSIDE RECORDS SUMMARY | 2024-10-01 11:46 | XMS_ITS | Continuity of Care Document ---
Author Organization [facility] Address [address] [facility] [place] [address] Phone Care Team Providers Care In Processing Instructor Name Role Phone Boaz Kumar MD Unavailable Unavailable Allergies, Adverse Reactions, Alerts Substance Reaction Status Criticality No Known Allergies Active No Inform ation Medications Medication Instructions Dosage Effective Dates (start - stop) Status Comments phentermine 37.5 mg tablet take 1 tablet by oral route every day before breakfast 37.5 MG - Active Protonix 40 mg tablet,delayed release take 1 tablet by oral route every day 40 MG - Active Procedures Procedure Date OFFICE/OUTPATIENT VISIT, EST OFFICE/OUTPATIENT VISIT, EST PREV VISIT, NEW, AGE 18-39 OFFICE/OUTPATIENT VISIT, NEW Advance Directives Directive Yes / No Effective Date File Name No Information Encounters Encounter Description Practice Location Reason(s) For Visit Diagnoses Date Provider Providers Copied on Encounter OFFICE/OUTPA TIENT VISIT, EST [facility], [address] [place], [place], [id number], [place] tel:[phone] [facility] constipati on1 (chief complaint) iron (chief complaint) Generalized abdominal painMixed irritable bowel syndromeOvarian cystIron deficiency 5 José Sandra. [address] [place], [place], [id number] , [place]. tel:[phone] OFFICE/OUTPA TIENT VISIT, EST [facility], [address] [place], [place], [id number], [place] tel:[phone] [facility] iron (chief complaint) GRED1 (chief complaint) weight loss1 (chief complaint) Abnormal weight lossIron deficiency anemiaGERD w/o esophagitis José Sandra. [address], [place], [place], [id number] , [place]. [phone] PREV VISIT, NEW, AGE 18-39 [facility], [address] [place] [place], [id number], [place] tel:[phone] [facility] physical (chief complaint) Encounter for general adult medical exam w abnormal findingsGERD w/o esophagitisAbnormal weight gainOvarian cystIron deficiency anemia 4 José Sandra. [address], [place], [place], [id number] , [place]. [phone] Family History Family Member Type Diagnosis Age At Onset Mother Problem High cholesterol Mother Problem Hypertension Father Problem High cholesterol Father Problem Hypertension Father Problem Alive and well Brother Problem Alive and well Payers Payer name Insurance type Covered democrat ID Authorjoaquina pitakaia(s) [facility] CI [id number] Social History Type Description Quantity Date Captured Comments Alcohol Use Details Caffeine Use Details Unknown Tobacco Use Status Current non-smoker Smoking Status Never smoker Sex Female Vital Signs Date / Time: Height Weight BMI Pulse Rate Blood Pressure Temperature Respiratory Rate Body Surface Area Head Circumference BMI percentile Pulse Ox Inhaled Ox 4:59 PM 67.00 in 167.00 lbs 26.1 6 kg/m eter (2) 87 /min 124/70 mm[Hg] 97.9 F 16 /min Chief Complaint And Reason For Visit From encounter dated '06/27/2024 16:55'. constipation1 (chief complaint). Description: Pt c/o acute onset of constipation started 5 weeks ago, which was one week before starting phentermine. Pt has been consuming 1200 calorie per day and she feels very full and bloated if she consume more than above. Pt does have left ovarian cyst and shesaw [facility] recently and had negative pelvic exam. her [facility] told her that the constipation maybe due to ovarian cyst .Pt had benign egd and colonoscopy last year. Pt does have history of IBS with diarrhea. She used to have BM daily but since 5 weeks ago. she has been having BM once per week despite using miralax and dulcolax Pt denies any hard stool Pt states that she has some loose stool when she does have BM once per week. Pt took augmentin recently for infection. pt denies any blood in stool, fever, etc. Pt has been taking probiotics for the past several weeks. pt denies any fever, chill, etc. Pt also notices mild left side abd pain when she tries to have BM. iron (chief complaint). Description: Pt has mild low iron Pt is not anemic. PT had negative EGD andcolonoscopy last year. Her UA and urine cortisol is ok Plan Of Treatment Date Type Action Status Referral Ordered: CT ABDOMEN&PELVIS W/CONTRAST ordered History Of Present Illness Encounter Date Complaint History Of Prese nt Illness constipation1 Pt c/o acute ons et of constipation started 5 weeks ago, which was one week before starting phentermine. Pt has been consuming 1200 calorie per day and she feels very full and bloated if she consume more than above. Pt does have left ovarian cyst and she saw [facility] recently and had negative pelvic exam. her [facility]NER told her that the constipation maybe due to ovarian cyst .Pt had benign egd and colonoscopy last year. Pt does have history of IBS with diarrhea. She used to have BM daily but since 5 weeks ago. she has been having BM once per week despite using miralax and dulcolax Pt denies any hard stool Pt states that she has some loose stool when she does have BM once per week. Pt took augmentin recently for infection. pt denies any blood in stool, fever, etc. Pt has been taking probiotics for the past several weeks. pt denies any fever, chill, etc. Pt also notices mild left side abd pain when she tries to have BM. iron Pt has mild low iron Pt is not anemic. PT had negative EGD and colonoscopy last year. Her UA and urine cortisol is ok weight loss1 Pt has been losi ng weight with diet and exercise and phentermine Pt lost 10 pounds Pt feels more energy and appetite suppression with phentermine Pt denies any chest pain Pt has mild dry mouth only Pt is very happy with phentermine Pt feels more energy also with phentermine GRED1 Pt has chronic G ERD. Pt takes protonix daily Pt had benign EGD iron Pt has mildly lo w iron saturation Pt denies any blood loss Pt denies heavy period. physical Pt needs annual physical Pt has gastric ulcer since last year and she had EGD done in December of 2023 which showed healed ulcer but she has gastric polyps which is benign and she is seeing GI currently. Pt has chronic GERD and she is on protonix for the past 7 years Pt could not tolerate GERD without protonix. Pt had normal colonoscopy October of 2023. Pt denies any abdominal pain Pt c/o weight gain during last 1-2 years. Pt gained 35 pounds. Pt has been diet and exercising but not able to lose weight. Pt has frequent ovarian cyst and she sees [facility] Instructions Date Instruction Additional Infor tammy No Information Assessments Type Assessment Date assessment Generalized abdominal pain assessment Mixed irritable bowel syndrome J assessment Ovarian cyst assessment Iron deficiency Mental Status Date Cognitive Assessment Orientation - Lucinda ed to time, place, person, situation.
--- OUTSIDE RECORDS SUMMARY | 2024-10-01 11:46 | XMS_ITS | Continuity of Care Document ---
Author Organization [facility] Address [address] [place] [address] Phone Care Team Providers Care Supervisor Benzene Refining Name Role Phone Ajay Osullivan PA-C Unavailable Unavailable Allergies, Adverse Reactions, Alerts Substance Reaction Status Criticality No Known Allergies Active No Inform ation Medications Medication Instructions Dosage Effective Dates (start - stop) Status Comments hydrocodone 5 mg-acetaminophen 325 mg tablet take 1 - 2 tablet by oral route every 8 hours as needed for pain 1-2 tablet - Active Procedures Procedure Date Postop followup visit Wrist Excision Ganglion Office/outpatient visit,est, mod 2022 Wrist Xray Complete Min 3 Views 023 Office/outpatient visit,new, mod 2022 WHO, Wrist Extension Control Cock-up, No nmolded, P Wrist Xray Complete Min 3 Views 020 Office/outpatient visit,est, high Shoulder Xray Complete Min Of 2 Views Ap Office/outpatient visit,new, mod 2018 Advance Directives Directive Yes / No Effective Date File Name No Information Encounters Encounter Description Practice Location Reason(s) For Visit Diagnoses Date Provider Providers Copied on Encounter [facility], [address] [place] [address], [id number], [place] tel:[phone] [facility] Lt wrist (chief complaint) Ganglion, left wrist 3 Abran Moss. [address] [place], [place], [id number] , . [phone] Referring Provider: Ajay Osullivan, [address] [place], [address] . tel:[phone] [facility], [address] [place] [address], [id number], tel:[phone] [facility] No Information 3 Onesimo Rae. [address] [place] [address], [id number] , [place]. tel:[phone] Referring Provider: Butch Hdez, [address] [place], [address] . tel:[phone] [facility], [address] [place] [address], [id number], tel:[phone] [facility] No Information 3 Onesimo Rae. [address] [place] [address], [id number] , . [phone] Referring Provider: Ajay Osullivan, [address] [place] [address], [address] . tel:[phone] Office/outpa tient visit,[facility], [facility], [address] [place] [address], [id number], tel:[phone] [facility] wrist (chief complaint) Ganglion, left wristGanglion cyst of dorsum of left wrist 3 Abran Moss. [address] [place] [address], [id number] , [place]. [phone] Referring Provider: Ajay Osullivan, [address] [place] [address], [address] . tel:[phone] Office/outpa tient visit,[facility], [facility], [address] [place] [address], [id number], tel:[phone] [facility] Lt wrist (chief complaint) Pain in left wristGanglion of left wrist 3 Abran Moss. [address] [place], [place], [id number] , . [phone] Referring Provider: Ajay Osullivan, [address] [place], [address] . tel:[phone] [facility], [address] [place] [address], [id number], tel:[phone] [facility] No Information 3 Abran Moss. [address] [place], [place], [id number] , . [phone] Referring Provider: Ajay Osullivan, [address] [place] [address], [id number] . tel:[phone] Office/outpa tient visit,[facility], [address] [place] [address], [id number], tel:[phone] [facility] bilateral wrist (chief complaint) Pain in unspecified wristGanglion cyst of dorsum of left wristGanglion cyst of dorsum of left wrist 0 Ertbritany Anderson. [address] [place], [place], [id number] , . [phone] Office/outpa tient visit,[facility], [address] [place] [address], [id number], tel:[phone] [facility] shoulder (chief complaint) Pain in left shoulderTendoniti s of left rotator cuff 201 9 Bassem Faye. [address] [place] [address], [id number] , . [phone] Family History Family Member Type Diagnosis Age At Onset No Information Payers Payer name Insurance type Covered libertarian ID Carol lemakaia(s) [facility] [id number] Social History Type Description Quantity Date Captured Comments Alcohol Use Details Caffeine Use Details Unknown Tobacco Use Status Current non-smoker Smoking Status Never smoker Non-Smoking Tobacco Use Details : No Details Available : No Details Available Sex Female Vital Signs Date / Time: Height Weight BMI Pulse Rate Blood Pressure Temperature Respiratory Rate Body Surface Area Head Circumference Head Circ. Percentile W[place]./[place]. Percentile BMI percentile Pulse Ox Inhaled Ox 2:26 PM 67.00 in 74.843 kg (165.00 lbs) 25.8 4 kg/m eter (2) Chief Complaint And Reason For Visit From encounter dated '12/23/2022 14:00'. Lt wrist (chief complaint) Reason For Referral Reason For Referral No Information Plan Of Treatment Date Type Action Status Goal Tobacco cessation counseling completed Future Order: Radiology Order Wr ist Xray Complete Min 3 Views ([id number]), Ordered on: Ordered Future Order: Radiology Order Wr ist Xray Complete Min 3 Views ([id number]), Ordered on: Ordered Future Order: Radiology Order Sh oulder Xray Complete Min Of 2 Views ([id number]), Ordered on: Ordered History Of Present Illness Encounter Date Complaint History Of Prese nt Illness Lt wrist wrist Lt wrist bilateral wrist shoulder Functional Status Date Functional Assessmen t No Information Instructions Date Instruction Additional Infor mation No Information Assessments Type Assessment Date assessment Ganglion, left wrist Patient Care Teams Name Effective Dates (start - stop) Status Members No Information
== END 2024-10-01 11:32 | disposition home or self-care (01) ==
PROVIDERS: Emergency Provider Nurse Practitioner Family; PCP Emergency Medicine
DX: S96.911A Strain of unspecified muscle and tendon at ankle and foot level, right foot, initial encounter (principal); X50.3XXA Overexertion from repetitive movements, initial encounter; Y93.02 Activity, running; K21.9 Gastro-esophageal reflux disease without esophagitis
CPT/HCPCS: 73630; 99213; G0463

== ENCOUNTER 2025-02-19 07:48 | Outpatient (CLI) | payer BC, SELFPAY ==
--- OUTSIDE RECORDS SUMMARY | 2025-02-05 07:39 | XMS_ITS | Continuity of Care Document ---
Author Organization [facility] Address [address] [place] [address] [place] [address] Phone Care Team Providers Care Employment Service Specialist Name Role Phone Boaz Kumar MD Unavailable Unavailable Allergies, Adverse Reactions, Alerts Substance Reaction Status Criticality No Known Allergies Active No Inform ation Medications Medication Instructions Dosage Effective Dates (start - stop) Status Comments Pepcid 40 mg tablet take 1 tablet by ora l route every day 40 MG - Active esomeprazole magnesium 40 mg capsule,delayed release take 1 capsule by oral route every day 40 MG - Active Procedures Procedure Date OFFICE/OUTPATIENT VISIT, EST OFFICE/OUTPATIENT VISIT, EST OFFICE/OUTPATIENT VISIT, EST OFFICE/OUTPATIENT VISIT, EST PREV VISIT, NEW, AGE 18-39 OFFICE/OUTPATIENT VISIT, NEW Advance Directives Directive Yes / No Effective Date File Name No Information Encounters Encounter Description Practice Location Reason(s) For Visit Diagnoses Date Provider Providers Copied on Encounter OFFICE/OUTPA TIENT VISIT, [facility], [place], [address] [place], [place], [id number], tel:[phone] [facility] GERD1 (chief complaint) tension1 (chief complaint) GERD w/o esophagitisTension headacheOther epilepsyChange in mental status 5 José Sandra. [address] [place], [id number] , [place]. tel:[phone] OFFICE/OUTPA TIENT VISIT, [facility], [place], [address] [place], [id number], [place] tel:[phone] [facility] weight loss1 (chief complaint) gastric ulcer1 (chief complaint) Chronic gastric ulcer without perforationAbnormal weight loss 5 José Buenrostro [address], [place], [id number] , . tel:[phone] OFFICE/OUTPA TIENT VISIT, [facility], [place], [address] [place], [id number], [phone] [facility] constipati on1 (chief complaint) iron (chief complaint) Generalized abdominal painMixed irritable bowel syndromeOvarian cystIron deficiency 5 José Buenrostro [address] [place], [id number] , [place]. tel:[phone] OFFICE/OUTPA TIENT VISIT, [facility], [place], [address] [place], [place], [id number], tel:[phone] [facility] iron (chief complaint) GRED1 (chief complaint) weight loss1 (chief complaint) Abnormal weight lossIron deficiency anemiaGERD w/o esophagitis 5 José Buenrostro [address] [place], [id number] , [place]. [phone] PREV VISIT, NEW, AGE 18-39 [facility], [address] [place], [id number], [place] [phone] [facility] physical (chief complaint) Encounter for general adult medical exam w abnormal findingsGERD w/o esophagitisAbnormal weight gainOvarian cystIron deficiency anemia 4 José Sandra. [address], [address] , [place]. [phone] Family History Family Member Type Diagnosis Age At Onset Mother Problem High cholesterol Mother Problem Hypertension Father Problem High cholesterol Father Problem Hypertension Father Problem Alive and well Brother Problem Alive and well Payers Payer name Insurance type Covered alliance party ID Authoriza tion(s) BS CI [id number] Social History Type Description Quantity Date Captured Comments Alcohol Use Details Caffeine Use Details Unknown Tobacco Use Status Current non-smoker Smoking Status Never smoker Sex Female Vital Signs Date / Time: Height Weight BMI Pulse Rate Blood Pressure Temperature Respiratory Rate Body Surface Area Head Circumference BMI percentile Pulse Ox Inhaled Ox 12:39 PM 67.00 in 164.00 lbs 25.6 9 kg/m eter (2) 99 /min 120/80 mm[Hg] 98.1 F 16 /min Chief Complaint And Reason For Visit From encounter dated '02/05/2025 12:39'. GERD1 (chief complaint). Description: Pt has been having worsening GERD lately with globus feeling around throat area and also food stuck in her throat area as well. Pt takes protonix daily Pt does have HH with non bleeding gastric ulcer two years ago. Pt denies any sore throat. Pt also has chronicmidepigastric abd pain. Pt also c/o feeling hoarseness. tension1 (chief complaint). Description: Pt also has been having persistent left side tension headache along with the GERD symptoms. pt states that she started to shake all over her body and dreamed of having a seizure several nights ago while asleep. Pt does not have any witness of the seizure activity. Pt states that she dreamed of her head shaking while asleep and she woke up feeling confused all day and could not remember anything. Pt denies any acute headache . Pt states that currently shefeels fine. Plan Of Treatment Date Type Action Status Referral Ordered: CT ANGIOGRAPHY, HEAD ordered Referral Ordered: CT ANGIOGRAPHY, NECK ordered Referral Ordered: ESOPH ENDOSCOPY, DILATION ordered Referral Ordered: CT ABDOMEN&PELVIS W/CONTRAST ordered History Of Present Illness Encounter Date Complaint History Of Prese nt Illness tension1 Pt also has been having persistent left side tension headache along with the GERD symptoms. pt states that she started to shake all over her body and dreamed of having a seizure several nights ago while asleep. Pt does not have any witness of the seizure activity. Pt states that she dreamed of her head shaking while asleep and she woke up feeling confused all day and could not remember anything. Pt denies any acute headache . Pt states that currently she feels fine. GERD1 Pt has been havi ng worsening GERD lately with globus feeling around throat area and also food stuck in her throat area as well. Pt takes protonix daily Pt does have HH with non bleeding gastric ulcer two years ago. Pt denies any sore throat. Pt also has chronic midepigastric abd pain. Pt also c/o feeling hoarseness. gastric ulcer1 Pt has recurrent gastric ulcer, which is non bleeding Pt is back on protonix per GI and she will do EGD again Pt has intermittent stomach pain. CT scan ok weight loss1 Pt has been losi ng weight with phentermine. Pt got down as low as 150 but she run out of phentermine and she gained some weight back. her weight goal is 140, which was her baseline weight. Pt tolerating phentermine well Pt has not had any phentermine x 2 months iron Pt has mild low iron Pt is not anemic. PT had negative EGD and colonoscopy last year. Her UA and urine cortisol is ok constipation1 Pt c/o acute ons et of constipation started 5 weeks ago, which was one week before starting phentermine. Pt has been consuming 1200 calorie per day and she feels very full and bloated if she consume more than above. Pt does have left ovarian cyst and she saw COMSEC MANAGER recently and had negative pelvic exam. her COMSEC MANAGER told her that the constipation maybe due [...] pain when she tries to have BM. weight loss1 Pt has been losi ng [...] has frequent ovarian cyst and she sees COMSEC MANAGER Instructions Date Instruction Additional Infor mation No Information Assessments Type Assessment Date assessment GERD w/o esophagitis assessment Tension headache assessment Other epilepsy assessment Change in mental status 025 Mental Status Date Cognitive Assessment Orientation - [place] ed to time, place, person, situation.Normal Orientation
--- NOTE | ~2025-02-19 | CT_ITS ---
EXAMINATION: CTA brain carotid DATE: 02/19/2025 08:50 INDICATION: Tension headache. TECHNIQUE: Computed tomographic angiography (CTA) of the head was performed without and with 100 mL Omnipaque-350 intravenous contrast. CTA of the neck was performed with intravenous contrast. Automated exposure control and iterative reconstruction technique were employed. The dose-length product was 1602.75 mGy- cm. Maximum intensity projection and volume rendered 3D-reconstructions were created by the technologist on a separate workstation. COMPARISON: None. FINDINGS: HEAD CTA: There is no intracranial hemorrhage, acute infarction, or abnormal intracranial mass lesion. The ventricles are normal in size. The orbits are normal. There is mild mucosal thickening in the paranasal sinuses. The mastoid air cells are normal. Left vertebral artery is dominant. There is no significant stenosis of basilar artery or the posterior cerebral arteries. The posterior communicating arteries are normal. There is no significant stenosis of the intracranial internal carotid arteries or anterior or middle cerebral arteries. Anterior communicating artery is normal. There is no aneurysm. NECK CTA: There are no pathologically enlarged lymph nodes. There is no significant stenosis of the vertebral arteries. There is no visible plaque in the proximal internal carotid arteries. There is 0% stenosis of the proximal right internal carotid artery relative to normal distal artery lumen diameter (NASCET criteria). There is 0% stenosis of the proximal left internal carotid artery relative to normal distal artery lumen diameter. There is kyphosis of cervical spine. IMPRESSION: 1. Normal brain. 2. No aneurysm or significant intracranial arterial stenosis. 3. 0% stenosis of the proximal internal carotid arteries relative to normal distal artery lumen diameters (NASCET criteria). Reviewed, dictated and finalized at location E. IMPRESSION: 1. Normal brain. 2. No aneurysm or significant intracranial arterial stenosis. 3. 0% stenosis of the proximal internal carotid arteries relative to normal dis arnaldo artery lumen diameters (NASCET criteria).
--- OUTSIDE RECORDS SUMMARY | 2025-02-19 07:59 | XMS_ITS | Clinical Summary ---
Author Organization [facility] Address [facility] [place] [address] Care Team Providers Care Formal Service Waiter Name Role Phone Angelita Tierney MD Primary Care Provider [phone] Social History Tobacco Use Types Packs/Day Years [...] of 3 - 19+ 3-dose series) 01/27/2008 HPV Vaccines (1 - 3-dose SCD M series) 01/27/2016 Cervical Cancer Screening Pa p with HPV Testing (Age 30 to 64) Every 5 Years 2019 Cervical Cancer Screening with HPV 2019 DTaP, Tdap and Td Vaccines ( 2 - Td or Tdap) 01/11/2023 01/11/2013 COVID-19 Vaccine (2023-2 5 season) 2025 Meningococcal B Vaccine Aged Out No l [...] patient's age to complete this topic Insurance [facility] Care Teams Formal Service Waiter Relationship Specialty Start Date End Date Angelita Tierney MD PCP - General FAMILY PRACTICE 02/27/19
--- OUTSIDE RECORDS SUMMARY | 2025-02-19 07:59 | XMS_ITS | Patient Health Record ---
Author Organization [facility] Billing Info Address [address] [place] [address] Care Team Providers Care Manager Wind Name Role Phone MELISSA TYLER Unavailable [phone] Reason For Referral No Information Medications Medication [...] Insured Coverage Start Date Coverage End Date FOR[facility] [id number] [address] [place], [place] [phone] [id number] Bogdan Mcmahan Spouse - patient is the spouse of the insured 8 Medical (General) History Surgical History Surgery Date(Month/Year) Hospitalization History Reason Date(Month/Year) childbirth 09/2014 childbirth 09/26/2017
--- OUTSIDE RECORDS SUMMARY | 2025-02-19 08:00 | XMS_ITS | Clinical Summary ---
Author Organization [facility] Care Team Providers Care Brilliandeer Looper Name Role Phone Boaz Kumar MD Primary Care Provider [phone] Allergies No known active allergies Medications triamcinolone (KENALOG) 0.1 % cream Apply topically 2 (two) times a day Active betamethasone valerate (VALISONE) 0.1 % lotion Apply topically 2 (two) times a day Active Bacillus coagulans (PROBIOTIC, B. COAGULANS, ORAL) Take by mouth Active pantoprazole DR (PROTONIX) 40 mg EC tabletIndications:Ga stric ulcer without hemorrhage or perforation, unspecified chronicity TAKE 1 TABLET(40 MG) BY MOUTH DAILY BEFORE BREAKFAST 30 tablet 3 01/30/[address] (PROTONIX) 40 mg EC tabletIndications:Sy mptomatic Gastroesophageal Reflux Disease Take 1 tablet (40 mg total) by mouth daily 30 tablet 1 01/30/[address] (PROTONIX) 40 mg EC tablet Take 1 tablet (40 mg total) by mouth daily before breakfast 30 tablet 6 12/18/19 24 025 Discontin ued(Dupli brooke order) pantoprazole DR (PROTONIX) 40 mg EC tabletIndications:Ga stric ulcer without hemorrhage or perforation, unspecified chronicity Take 1 tablet (40 mg total) by mouth daily before breakfast 30 tablet 3 10/22/19 25 025 Discontin ued(Dupli brooke order) Active Problems Problem Noted Date Diagnosed Date Gastric ulcer without hemorrhage or perforation 10/18/2023 Chronic diarrhea 10/10/2023 Diarrhea 07/21/2023 Assessment & Plan (07/21/2023 10:01 AM HYDROMETER FINISHER): Chronic diarrhea. Last colonoscopy by Dr. Feng March 2022 with normal colonoscopy to the terminal ileum, biopsies of the ascending colon with melanosis coli. Last EGD by Dr. Feng March 2022 with biopsies of the duodenum with increased intraepithelial lymphocytes. -we will order stool studies and labs for further evaluation Abdominal pain 07/21/2023 Assessment & Plan (07/21/2023 10:02 AM HYDROMETER FINISHER): Left lower quadrant abdominal pain radiating to [...] suppression. Assessment & Plan (07/21/2023 10:00 AM HYDROMETER FINISHER): Last EGD by Dr. Feng March 2022 [...] scan? Assessment & Plan (07/21/2023 10:00 AM HYDROMETER FINISHER): Unclear diagnosis, has tried Creon in the past but cause constipation. -obtain prior GI records Assessment & Plan (03/14/2023 4:34 PM CDT): Chronic. Uncertain etiology. Need to review records from GI. No longer taking Creon as this cause constipation. Gastroesophageal reflux dise ase with esophagitis without hemorrhage 03/14/2023 Assessment & Plan (07/21/2023 10:00 AM HYDROMETER FINISHER): Chronic GERD, well-controlled with PPI daily. Takes [...] Encounters Date Type Department Care Team Description 01/29/2025 Orders Only [facility] at [address] [place] [address] Gil Hutchison MD Gastroesophageal reflux disease with esophagitis without hemorrhage (Primary Dx) from Last 3 Months Immunizations Immunization Administration [...] Comments Blood Pressure 118/76 07/05/2024 12:33 PM HYDROMETER FINISHER Pulse 86 07/05/2024 12:33 PM HYDROMETER FINISHER Temperature 36.9 C (98.4 F) 07/05/2024 12:33 PM HYDROMETER FINISHER Respiratory Rate 20 07/05/2024 12:33 PM HYDROMETER FINISHER Oxygen Saturation 98% 07/05/2024 12:33 PM HYDROMETER FINISHER Inhaled Oxygen Concentration - - Weight 74.4 kg (164 lb) 07/05/2024 12:33 PM HYDROMETER FINISHER Height 170.2 cm (5' 7) 07/21/2023 9:30 AM HYDROMETER FINISHER Body Mass Index 25.69 07/21/2023 9:30 AM HYDROMETER FINISHER Plan of Treatment Health Maintenance Due Date Last Done Comments Hepatitis C Screening 1990 Hepatitis B Screening 2007 Regular Well Visit/Exam 18-64 2007 HPV Vaccines (1 - 3-dose SCDM series) 01/27/2016 Depression Screening 05/15/2024 05/15/2023, 03/14/2023, 03/14/2023 Covid-19 Vaccine ( season) 2025 05/12/2021, 07/29/2020, 06/29/2020 Influenza Vaccine (#1) 2025 , 03/04/2019 Cervical Cancer Screening 05/17/20282022, 02/01/2019 DTaP/Tdap/Td Vaccine (2 - Td or Tdap) 12/26/2029 12/27/2019 Colon Cancer Screening-Colonoscopy 10/15/2033 10/16/2023, 03/15/2022 Pneumococcal vaccine <65 Aged Out No longer eligible based on patient's age to complete this topic Varicella Vaccines Discontinued Procedures Procedure Name Priority Date/Time Associated Diagnosis Comments COLONOSCOPY 10/16/2023 9:43 AM CDT PAP AND HIGH RISK HPV, REFLEX TO GENOTYPING Routine 05/17/2023 4:41 PM HYDROMETER FINISHER Encounter for screening for malignant neoplasm of cervix from Last 3 Months or Most Recently Relevant to Health Maintenance Results * Colonoscopy (10/16/2023 9:43 AM CDT) Anatomical Region Laterality Modality Other Narrative Procedure Note Gil Hutchison MD - 10/16/2023 9:43 AM CDT [facility] GI ENDOSCOPY Patient Name: Christy Ward Procedure Date: 10/16/2023 9:43 AM Date of : 1990 Admit Type: Outpatient Age: 33 Gender: Female Attending MD: Gil Hutchison M.D. Room: [facility] ENDOSCOPY ROOM 06 Note Status: Finalized [...] The scope was passed under direct vision.The [id number] colonoscope was introduced through theanus and advanced [...] On: 10/16/2023 9:43 AM Recognized by the [place] for promoting quality in endoscopy us Gil Hutchison MD ENDOSCOPY PROCEDURES Final Resul t * Pap and High Risk HPV and Genotyping (Cytology Component) (05/17/2023 4:41 PM HYDROMETER FINISHER) Vaginal (Pap test) 05/17/2023 4:41 PM HYDROMETER FINISHER 05/18/2023 5:41 PM HYDROMETER FINISHER Narrative PATHOLOGY [facility] - 05/26/2023 7:40 AM HYDROMETER FINISHER EPIC results best viewed via link to PDF [facility] [place] [address] Note to Patients: This report may contain [...] Gender: Mala : 1990 (Age: 33) Address: [address] [place] [id number] Hospital #: [id number] Service: DEFAULT Location: Patient Type: [facility] SPECIMEN Taken: 05/17/2023 Received: 05/18/2023 Accessioned: 05/22/2023 [...] this test have been verified by the [facility] Molecular Infectious Disease laboratory. Correlate with reported cytology results, as applicable. Interpretive data last revised 22 tc/05/26/2023 07:40 PEBBLES Oconnor (ASCP) Report Electronically Reviewed [...] clinical information and biopsy results as indicated. [facility] Clinical Laboratory Improvement Amendments (CLIA) mandate that cytologic and histologic results be correlated for laboratory quality assurance auditor & improvement standards. FOR ALL HIGH-GRADE CASES [...] determined by the Surgical Pathology Department at [facility] as part of an ongoing chemistry quality control technician program and in compliance with federally mandated [...] determined by the Surgical Pathology Department of [facility]. It has not been cleared or approved by the U. S. Food and Drug Administration. Vaibhav Corley MD LAB CYTOLOGY ORDERABLES Final Result [facility] from Last 3 Months or Most Recently Relevant to Health Maintenance Insurance [employer] [facility] Care Teams Brilliandeer Looper Relationship Specialty Start Date End Date Boaz Kumar MD [address] [place] [address] PCP - General Family Medicine 07/05/24
== END 2025-02-19 07:49 | disposition home or self-care (01) ==
PROVIDERS: PCP Emergency Medicine; Visit Provider Emergency Medicine
DX: G44.209 Tension-type headache, unspecified, not intractable (principal)
CPT/HCPCS: 70496; 70498; Q9967